=== PATIENT | female | born 1950 | race African-American/Black ===

== ENCOUNTER → 2019-08-09 | Day surgery (SDC) | payer MEDICARE, OTHER ==
[2019-08-06 16:35] LABS: BASOPHILS % 0.8 % (0.0-1.0); EOSINOPHILS # (AUTO) 0.1 (0.0-0.4); HEMATOCRIT 46.3 % (34.2-44.1); HEMOGLOBIN 13.9 g/dL (12.0-16.0); LYMPHOCYTES # (AUTO) 1.5 (1.0-3.2); LYMPHOCYTES % 29.9 % (18.0-39.1); MEAN CORPUSCULAR HEMOGLOBIN 28.5 pg (28-32); MEAN CORPUSCULAR VOLUME 95.1 fL (81-99); MONOCYTES # (AUTO) 0.3 (0.2-0.8); MONOCYTES % 5.8 % (4.4-11.3); NEUTROPHILS % 62.1 % (38.7-80.0); PLATELET COUNT 199 x10e3/uL (140-360); RED BLOOD COUNT 4.87 x10e6/uL (3.6-5.1)
[2019-08-06 16:42] LABS: INR 0.84
[2019-08-06 16:47] LABS: ANION GAP 10.7 mmol/L (8-16); BLOOD UREA NITROGEN 17 mg/dL (7-26); BUN/CREATININE RATIO 18 (6-25); CALCIUM 10.1 mg/dL (8.4-10.2); CARBON DIOXIDE 29 mmol/L (22-29); CHLORIDE 106 mmol/L (98-107); CREATININE, SERUM 0.94 mg/dL (0.57-1.11); EST GLOMERULAR FILTRATION RATE > 60 ML/MIN (60-); GLUCOSE 97 mg/dL (74-118); POTASSIUM 3.7 mmol/L (3.5-5.1); SODIUM 142 mmol/L (136-145)
--- NOTE | 2019-08-06 17:38 | Diagnostic Imaging Report ---
EXAMINATION: CHEST 2 VIEWS INDICATION: ^[id number] ^[id number] ^PRE-OP COMPARISON: None FINDINGS: PA and lateral views TUBES and LINES: None. LUNGS/PLEURA: Lungs are well inflated. There is no evidence of pneumonia or pulmonary edema.. There is no pleural effusion or pneumothorax. HEART AND MEDIASTINUM: The cardiomediastinal silhouette is unremarkable. BONES AND SOFT TISSUES: No acute osseous lesion. Soft tissues are unremarkable. UPPER ABDOMEN: No free air under the diaphragm. IMPRESSION: No acute thoracic abnormality. Signed by: Mayur Anaya MD on 08/06/2019 5:34 PM
[~2019-08-09] MED LIST: ACETAMINOPHEN 1000 MG/100 ML 100 ML IV ONE; ACETAMINOPHEN 325 MG TAB PO PRN; AMLODIPINE BESYL5 MG PO; AMLODIPINE BESYLATE 5 MG TAB PO SCH; BACITRACIN 50,000 UNIT VIAL ONE; BRIMONIDINE TART5 ML OP; BRIMONIDINE TARTRATE (OPTH) 5 ML LIQD OP SCH; BUPIVACAINE 0.25%/EPI 30ML SDV INJ ONE; CARISOPRODOL 350 MG TAB PO PRN; CEFAZOLIN SOD 1 GM/NS 50ML 0 ML IV ONE; CEFAZOLIN SOD 1 GM/NS 50ML 100 ML IV ONE; CEFAZOLIN SOD 1 GM/NS 50ML 50 ML IV SCH; DEXAMETHASONE SOD PHOS INJ 4 MG/ML VIAL ONE; DORZOLAMIDE-TIM10 ML OP; DORZOLAMIDE/TIMOLOL (OPTH SOL) 10 ML DRPETTE OP SCH; FENTANYL CITRATE/PF 100MCG/2 ML INJ ONE; GLYCOPYRROLATE INJ 0.2 MG/ML VIAL ONE; HYDROCHLOROTHIAZIDE 25 MG TAB PO SCH; HYDROCODONE/APAP 7.5MG-325MG 1 EA TAB ONE; HYDROMORPHONE 2MG/ML 2 MG/ML ML IV PRN; LACTATED RINGER'S 1,000 ML IV SCH; LATANOPROST(OPTH) 2.5 ML BTL OP SCH; LATANOPROST2.5 ML OP; LIDOCAINE HCL (LTA) 4 ML SOLN ONE; LIDOCAINE HCL 2% LOCAL INJ 5 ML SDV VIAL INJ ONE; LISINOPRIL 10 MG TAB PO SCH; LISINOPRIL-HCT1 EAC2 PO; MAGNESIUM/ALUMINUM/SIMETHICONE 30 ML UDC PO PRN; MEPERIDINE HCL INJ 25 MG/ML VIAL ONE; MIDAZOLAM HCL 2 MG/2 ML VIAL ONE; MORPHINE SULFATE 2 MG/ML SYR 1ML ONE; MORPHINE SULFATE 5 MG/ML VIAL IM PRN; NEOSTIGMINE 1 MG/ML 10ML VIAL ONE; ONDANSETRON HCL INJ 2MG/ML 2ML 2 MG/ML VIAL IV PRN; ONDANSETRON HCL INJ 2MG/ML 2ML 2 MG/ML VIAL ONE; OXYCODONE/ACETAMINOPHEN 5-325 1 EACH TABLET PO PRN; PROMETHAZINE HCL (IM) 25 MG/ML VIAL IM PRN; PROPOFOL IV EMULSION 10 MG/ML 20 ML VIAL ONE; ROCURONIUM BROMIDE 10 MG/ML 5ML VIAL IV ONE; SEVOFLURANE INHAL SOLN 250 ML PEN BTL ONE; THROMBIN FOR SOLN 5,000 UNIT VIAL ONE; ZOLPIDEM TARTRATE 5 MG TAB PO PRN
--- NOTE | 2019-08-09 11:57 | Operative Report ---
DATE OF PROCEDURE: 08/09/2019 SURGEON: Domenico Oliveira MD PREOPERATIVE DIAGNOSIS: Left L5-S1 disk herniation with radiculopathy, M51.17. POSTOPERATIVE DIAGNOSIS: Left L5-S1 disk herniation with radiculopathy, M51.17. PROCEDURE: Left L5-S1 laminotomy, medial facetectomy, and microsurgical diskectomy, [id number]. ANESTHESIA: General. INDICATIONS: The patient is a 69-year-old woman who presents with a severe left S1 radiculopathy due to an L5-S1 disk herniation. She was taken to surgery for microsurgical diskectomy. PROCEDURE IN DETAIL: After induction of general anesthesia, the patient was placed on the operating table in prone position over Richard frame. Lumbar region was prepped and draped in sterile fashion. A preoperative x-ray was obtained. A small midline incision was created. Lumbar fascia was opened in the left of midline. A subperiosteal dissection was carried out to expose the left-sided L5 and S1 lamina and the medial aspect of the facet joint and 2nd x-ray confirmed correct localization. The operating microscope was brought in. A high-speed drill equipped with katty bur was used to drill the inferior aspect of lamina of L5 and the superior aspect of the lamina of S,1 and medial rim of the L5-S1 facet joint on the left side. The ligamentum flavum was resected and the dural sac and S1 nerve roots were exposed. The nerve root was clearly compressed and elevated by the underlying disk herniation. It was slightly retracted medially to expose the disk herniation. The herniated disk material was then mobilized with a micro ball probe and grasped with a micropituitary rongeur and removed from under the nerve root. The opening into the annulus of the disk was enlarged with a #11 blade and the loose contents of the L5-S1 disk were evacuated with curettes and pituitary instruments. Meticulous hemostasis was secured. The retractor was removed. The lumbar fascia was closed with 0 Vicryl suture. Subcutaneous layer was closed with 2-0 Vicryl sutures. The skin was closed with 3-0 Monocryl sutures in subcuticular fashion. Steri-Strips and dressings were applied. The patient was awakened, extubated, and taken to postanesthesia care unit in stable condition. No intraoperative complications were encountered. ESTIMATED BLOOD LOSS: 10 mL. Domenico Oliveira MD PP/DINORA /[id number]
[2019-08-09 13:20] VITALS: BP 124/80
== END | disposition home or self-care (01) ==
LOC: OR 06:40
PROVIDERS: ATTEND Neurological Surgery
DX: M51.17 Intervertebral disc disorders with radiculopathy, lumbosacral region (principal); I10 Essential (primary) hypertension; I44.0 Atrioventricular block, first degree; Z01.810 Encounter for preprocedural cardiovascular examination; Z01.812 Encounter for preprocedural laboratory examination; Z01.818 Encounter for other preprocedural examination; Z11.59 Encounter for screening for other viral diseases
CPT/HCPCS: 36415; 63047; 71046; 72020; 80048; 85025; 85610; 85730; 86850; 86870; 86880; 86900; 86905; 87635; 88304; 93005; 99001; J0131; J0690; J1100; J2001; J2175; J2250; J2270; J2405; J2704; J2710; J3010

== ENCOUNTER 2021-03-23 21:46 | Observation (INO) | payer MEDICARE ==
[~2021-03-23] VITALS: Ht 162.6 cm; Wt 71.7 kg
[~2021-03-23 21:46] MED LIST changes: -ACETAMINOPHEN 1000 MG/100 ML 100 ML IV ONE; -ACETAMINOPHEN 325 MG TAB PO PRN; -AMLODIPINE BESYLATE 5 MG TAB PO SCH; -BACITRACIN 50,000 UNIT VIAL ONE; -BRIMONIDINE TARTRATE (OPTH) 5 ML LIQD OP SCH; -BUPIVACAINE 0.25%/EPI 30ML SDV INJ ONE; -CARISOPRODOL 350 MG TAB PO PRN; -CEFAZOLIN SOD 1 GM/NS 50ML 0 ML IV ONE; -CEFAZOLIN SOD 1 GM/NS 50ML 100 ML IV ONE; -CEFAZOLIN SOD 1 GM/NS 50ML 50 ML IV SCH; -DEXAMETHASONE SOD PHOS INJ 4 MG/ML VIAL ONE; -DORZOLAMIDE/TIMOLOL (OPTH SOL) 10 ML DRPETTE OP SCH; -FENTANYL CITRATE/PF 100MCG/2 ML INJ ONE; -GLYCOPYRROLATE INJ 0.2 MG/ML VIAL ONE; -HYDROCHLOROTHIAZIDE 25 MG TAB PO SCH; -HYDROCODONE/APAP 7.5MG-325MG 1 EA TAB ONE; -HYDROMORPHONE 2MG/ML 2 MG/ML ML IV PRN; -LACTATED RINGER'S 1,000 ML IV SCH; -LATANOPROST(OPTH) 2.5 ML BTL OP SCH; -LIDOCAINE HCL (LTA) 4 ML SOLN ONE; -LIDOCAINE HCL 2% LOCAL INJ 5 ML SDV VIAL INJ ONE; -LISINOPRIL 10 MG TAB PO SCH; -MAGNESIUM/ALUMINUM/SIMETHICONE 30 ML UDC PO PRN; -MEPERIDINE HCL INJ 25 MG/ML VIAL ONE; -MIDAZOLAM HCL 2 MG/2 ML VIAL ONE; -MORPHINE SULFATE 2 MG/ML SYR 1ML ONE; -MORPHINE SULFATE 5 MG/ML VIAL IM PRN; -NEOSTIGMINE 1 MG/ML 10ML VIAL ONE; -ONDANSETRON HCL INJ 2MG/ML 2ML 2 MG/ML VIAL IV PRN; -ONDANSETRON HCL INJ 2MG/ML 2ML 2 MG/ML VIAL ONE; -OXYCODONE/ACETAMINOPHEN 5-325 1 EACH TABLET PO PRN; -PROMETHAZINE HCL (IM) 25 MG/ML VIAL IM PRN; -PROPOFOL IV EMULSION 10 MG/ML 20 ML VIAL ONE; -ROCURONIUM BROMIDE 10 MG/ML 5ML VIAL IV ONE; -SEVOFLURANE INHAL SOLN 250 ML PEN BTL ONE; -THROMBIN FOR SOLN 5,000 UNIT VIAL ONE; -ZOLPIDEM TARTRATE 5 MG TAB PO PRN
[2021-03-23 22:18] LABS: BASOPHILS % 0.5 % (0.0-1.0); EOSINOPHILS # (AUTO) 0.1 (0.0-0.4); HEMATOCRIT 44.5 % (34.2-44.1); HEMOGLOBIN 13.7 g/dL (12.0-16.0); LYMPHOCYTES # (AUTO) 1.7 (1.0-3.2); LYMPHOCYTES % 21.8 % (18.0-39.1); MEAN CORPUSCULAR HEMOGLOBIN 28.8 pg (28-32); MEAN CORPUSCULAR HGB CONC 30.8 g/dL (31-35); MEAN CORPUSCULAR VOLUME 93.7 fL (81-99); MONOCYTES # (AUTO) 0.4 (0.2-0.8); MONOCYTES % 5.3 % (4.4-11.3); NEUTROPHILS # (AUTO) 5.6 (2.1-6.9); NEUTROPHILS % 71.1 % (38.7-80.0); PLATELET COUNT 208 x10e3/uL (140-360); RED BLOOD COUNT 4.75 x10e6/uL (3.6-5.1); RED CELL DISTRIBUTION WIDTH 12.7 % (11.7-14.4)
[2021-03-23 22:31] LABS: ALBUMIN 3.5 g/dL (3.5-5.0); ALBUMIN/GLOBULIN RATIO 0.7 (0.8-2.0); ANION GAP 14.5 mmol/L (8-16); CREATININE, SERUM 0.92 mg/dL (0.57-1.11); POTASSIUM 3.5 mmol/L (3.5-5.1)
[2021-03-23 22:38] LABS: CREATINE KINASE MB 7.8 ng/mL (0-5.0)
[2021-03-23] MEDS ORDERED: ONDANSETRON HCL INJ 2MG/ML 2ML 2 MG/ML VIAL IV PRN (23:30)
[2021-03-23] MEDS ORDERED: Morphine 2mg Syringe 2 MG/ML SYR IV PRN (23:30)
[2021-03-24] VITALS (8 sets, daily range): BP systolic 115–130; BP diastolic 79–94
[2021-03-24] MEDS: FAMOTIDINE 20 MG/2 ML VIAL IV SCH ×3 (00:16→20:35)
[2021-03-24 00:40] LABS: CREATINE KINASE MB 7.2 ng/mL (0-5.0)
[2021-03-24 05:58] LABS: CHOL/HDL RATIO 2.7 (3.0-3.6)
[2021-03-24] MEDS ORDERED: LATANOPROST(OPTH) 2.5 ML BTL OP SCH ×2 (09:00→21:00)
[2021-03-24] MEDS: BRIMONIDINE TARTRATE (OPTH) 5 ML LIQD OP SCH ×2 (09:32→17:19)
[2021-03-24] MEDS: LISINOPRIL 10 MG TAB PO SCH (09:34)
[2021-03-24] MEDS: ASPIRIN 81 MG ENTERIC COATED PO SCH (09:34)
[2021-03-24] MEDS: HYDROCHLOROTHIAZIDE 25 MG TAB PO SCH (09:34)
[2021-03-24] MEDS: AMLODIPINE BESYLATE 5 MG TAB PO SCH (09:35)
[2021-03-24 12:48] LABS: CREATINE KINASE MB 2.4 ng/mL (0-5.0)
[2021-03-24] MEDS ORDERED: ENOXAPARIN SOD INJ 40 MG/0.4 ML SYR SC SCH (17:00)
[2021-03-25] VITALS: BP 104/64
[2021-03-25 04:00] VITALS: BP 119/80
[2021-03-25] MEDS ORDERED: FAMOTIDINE20 MG/2 ML IV (05:58)
[2021-03-25] MEDS ORDERED: ASPIRIN EC81 MG PO (05:58)
[2021-03-25] MEDS ORDERED: LOPRESSOR25 MG PO (05:59)
[2021-03-25] MEDS ORDERED: METOPROLOL TARTRATE 25 MG TAB PO SCH (07:00)
[2021-03-25 07:47] VITALS: BP 115/81
[2021-03-25 07:49] VITALS: BP 115/81
[2021-03-25] MEDS: BRIMONIDINE TARTRATE (OPTH) 5 ML LIQD OP SCH (08:05)
[2021-03-25] MEDS: FAMOTIDINE 20 MG/2 ML VIAL IV SCH (08:05)
[2021-03-25] MEDS: HYDROCHLOROTHIAZIDE 25 MG TAB PO SCH (08:06)
[2021-03-25] MEDS: ASPIRIN 81 MG ENTERIC COATED PO SCH (08:06)
[2021-03-25] MEDS: LISINOPRIL 10 MG TAB PO SCH (08:06)
[2021-03-25] MEDS: AMLODIPINE BESYLATE 5 MG TAB PO SCH (08:06)
[2021-03-25 11:03] VITALS: BP 122/87
[2021-03-25] MEDS ORDERED: ONDANSETRON HCL 4 MG ORAL DISINTEGRATING TAB PO PRN (11:15)
[2021-03-25] MEDS ORDERED: FAMOTIDINE 20 MG TAB PO SCH (21:00)
== END 2021-03-25 14:57 | disposition home or self-care (01) ==
LOC: ER 22:03 → ERHOLD 23:24 → MED/SURG 03-24 00:29
PROVIDERS: ADMIT Internal Medicine; ATTEND Internal Medicine
DX: R00.2 Palpitations (principal); I10 Essential (primary) hypertension; Z20.822 Contact with and (suspected) exposure to COVID-19; H40.9 Unspecified glaucoma; R73.03 Prediabetes; R00.0 Tachycardia, unspecified
CPT/HCPCS: 36415 ×3; 71045; 78452; 80053; 80061; 82550 ×2; 82553 ×2; 84439; 84484 ×2; 85025; 93005; 93017; 93306; 94799; 99284; A9502; G0378 ×3; J1650; U0002

== ENCOUNTER → 2023-09-26 | Day surgery (SDC) | payer MEDICARE ==
[2023-09-21 13:04] LABS: BASOPHILS % 0.7 % (0.0-1.0); EOSINOPHILS # (AUTO) 0.1 (0.0-0.4); EOSINOPHILS % 1.2 % (0.0-6.0); HEMATOCRIT 47.2 % (34.2-44.1); HEMOGLOBIN 14.4 g/dL (12.0-16.0); LYMPHOCYTES # (AUTO) 1.8 (1.0-3.2); MEAN CORPUSCULAR HEMOGLOBIN 29.4 pg (28-32); MEAN CORPUSCULAR HGB CONC 30.5 g/dL (31-35); MEAN CORPUSCULAR VOLUME 96.5 fL (81-99); MONOCYTES # (AUTO) 0.3 (0.2-0.8); MONOCYTES % 5.1 % (4.4-11.3); NEUTROPHILS # (AUTO) 3.7 (2.1-6.9); NEUTROPHILS % 62.8 % (38.7-80.0); PLATELET COUNT 194 x10e3/uL (140-360); RED BLOOD COUNT 4.89 x10e6/uL (3.6-5.1); RED CELL DISTRIBUTION WIDTH 12.7 % (11.7-14.4); WHITE BLOOD COUNT 5.87 x10e3/uL (4.8-10.8)
[2023-09-21 13:21] LABS: ANION GAP 13.4 mmol/L (8-16); CALCIUM 10.5 mg/dL (8.4-10.2); CREATININE, SERUM 0.92 mg/dL (0.57-1.11); POTASSIUM 4.4 mmol/L (3.5-5.1)
[~2023-09-26] MED LIST changes: +ACETAMINOPHEN 1000 MG/100 ML IV ONE; +ASPIRIN EC81 MG PO; +BUPIVACAINE HCL 0.5% INJ 30 ML VIAL INJ ONE; +CALCIUM + VITA1 EACH PO; +CENTRUM SILVER1 EAC3 PO; +DEXAMETHASONE SOD PHOS INJ 4 MG/ML SDV ONE; +DEXMEDETOMIDINE HCL 200 MCG/2 ML VIAL ONE; +ECHINACEA80 MG PO; +FAMOTIDINE20 MG/2 ML IV; +FAMOTIDINE40 MG PO; +FENTANYL CITRATE/PF 100MCG/2 ML INJ ONE; +LIDOCAINE HCL 2% LOCAL INJ 5 ML SDV VIAL INJ ONE; +LOPRESSOR25 MG PO; +MOTRIN200 MG PO; +ONDANSETRON HCL INJ 2MG/ML 2ML 2 MG/ML VIAL ONE; +OSTEO BI-FLEX1 EAC2 PO; +PROBIOTICS1 EACH PEG; +PROPOFOL IV EMULSION 10 MG/ML 20 ML VIAL ONE; +ROCURONIUM BROMIDE 10 MG/ML 5ML VIAL IV ONE; +SEVOFLURANE INHAL SOLN 250 ML PEN BTL ONE; +SUCCINYLCHOLINE CHLORIDE 20 MG/ML 10ML VIAL ONE; +SUGAMMADEX SODIUM 200 MG/2 ML VIAL IV ONE; +ULTRAM 50MG50 MG PO
[2023-09-26] MEDS: CEFAZOLIN SODIUM 2 GM ONE (11:06)
[2023-09-26] MEDS: LACTATED RINGER'S 1,000 ML ONE (11:06)
[2023-09-26 13:06] VITALS: TEMP 98.4
[2023-09-26] MEDS: ALBUTEROL/IPRATROPIUM 3 ML NEB ONE (13:22)
[2023-09-26] MEDS: TRAMADOL HCL 50 MG TAB ONE (13:50)
[2023-09-26 14:45] VITALS: BP 141/81; PULSE 80; RESP 16; O2SAT 96
== END | disposition home or self-care (01) ==
LOC: OR 10:43
PROVIDERS: ATTEND Surgery
DX: K43.9 Ventral hernia without obstruction or gangrene (principal); H40.9 Unspecified glaucoma; I10 Essential (primary) hypertension; R05.9 Cough, unspecified; Z01.810 Encounter for preprocedural cardiovascular examination; Z01.812 Encounter for preprocedural laboratory examination; Z01.818 Encounter for other preprocedural examination; Z79.1 Long term (current) use of non-steroidal anti-inflammatories (NSAID); Z79.899 Other long term (current) drug therapy
CPT/HCPCS: 36415; 49591; 71046; 80048; 85025; 93005; J0131; J0330; J1100; J2001; J2405; J2704; J3010; J7121